=== PATIENT | female | born 1965 | race Caucasian/White ===

== ENCOUNTER 2020-08-13 16:56 | Inpatient (IN) | payer OTHER ==
[2020-08-13 18:20] VITALS: BMI 23.9
[2020-08-13] MEDS ORDERED: BISMUTH SUBSALICYLATE 524 MG/30 ML UD PO PRN (18:46)
[2020-08-13] MEDS ORDERED: MAGNESIUM CITRATE 300 ML BOTTLE PO PRN (18:46)
[2020-08-13] MEDS ORDERED: IBUPROFEN 400 MG TABLET (FP) PO PRN (18:46)
[2020-08-13] MEDS ORDERED: MENTHOL/PHENOL 1 EACH UD MM PRN (18:46)
[2020-08-13] MEDS ORDERED: METHOCARBAMOL 500 MG TABLET PO PRN (18:46)
[2020-08-13] MEDS ORDERED: MAG HYDROX/AL HYDROX/SIMETH 30 ML UNIT-DOSE CUP PO PRN (18:46)
[2020-08-13] MEDS ORDERED: ONDANSETRON *ODT* 4 MG TABLET SL PRN (18:46)
[2020-08-13] MEDS ORDERED: LORazepam 1 MG TABLET PO PRN (18:46)
[2020-08-13] MEDS ORDERED: ACETAMINOPHEN 325 MG TABLET (FP) PO PRN ×2 (18:46)
[2020-08-13] MEDS ORDERED: MAGNESIUM HYDROX 2400MG/30ML ORAL SUSPENSION 30 ML CUP PO PRN (18:46)
[2020-08-13] MEDS: PRENATAL VITAMINS W/ FOLIC ACID TABLET (FP) PO SCH (20:10)
[2020-08-13] MEDS: INSULIN SLIDING SCALE (NOVOLOG) 1 VIAL SQ SCH (22:27)
[2020-08-13] MEDS ORDERED: INSULIN (NOVOLOG) ASPART 100 UNITS/ML 10ML VIAL ONE (22:28)
[2020-08-13] MEDS: LORazepam 2 MG TABLET PO SCH (22:29)
[2020-08-13] MEDS: THIAMINE HCL 100 MG TABLET (FP) PO SCH (22:29)
[2020-08-13] MEDS: MELATONIN 5 MG TABLETS PO SCH (22:29)
[2020-08-13] MEDS: hydrOXYzine PAMOATE 25 MG CAPSULE (FP) PO SCH (22:31)
[2020-08-14] MEDS: LORazepam 2 MG TABLET PO SCH ×2 (05:51→12:23)
[2020-08-14] MEDS: hydrOXYzine PAMOATE 25 MG CAPSULE (FP) PO SCH ×5 (05:52→23:31)
[2020-08-14] MEDS: INSULIN SLIDING SCALE (NOVOLOG) 1 VIAL SQ SCH ×4 (07:53→21:16)
[2020-08-14] MEDS: metFORMIN HCL 500 MG TABLET (FP) PO SCH ×2 (07:53→16:54)
[2020-08-14] MEDS ORDERED: INSULIN (NOVOLOG) ASPART 100 UNITS/ML 10ML VIAL ONE ×3 (08:02→21:12)
[2020-08-14 10:47] LABS: HEMATOCRIT 38.3 % (32.4-45.2); HEMOGLOBIN 12.8 GM/dL (10.7-15.3); MCH 31.9 pg (25.7-33.7); MCHC 33.4 g/dl (32.0-36.0); MEAN CELL VOLUME 95.4 fl (80-96); MEAN PLT VOLUME 8.9 fl (7.5-11.1); PLATELET COUNT 326 K/MM3 (134-434); RBC 4.02 M/mm3 (3.60-5.2); RDW 14.1 % (11.6-15.6); WHITE BLOOD COUNT 7.3 K/mm3 (4.0-10.0)
[2020-08-14] MEDS: ESCITALOPRAM OXALATE 10 MG TABLET PO SCH (10:55)
[2020-08-14] MEDS: PRENATAL VITAMINS W/ FOLIC ACID TABLET (FP) PO SCH (10:56)
[2020-08-14 11:12] LABS: POTASSIUM 4.5 mmol/L (3.5-5.1)
[2020-08-14 11:16] LABS: CALCIUM 9.2 mg/dL (8.5-10.1)
[2020-08-14 11:19] LABS: ALBUMIN 3.4 g/dl (3.4-5.0); BLOOD UREA NITROGEN 17.1 mg/dL (7-18)
[2020-08-14 11:22] LABS: CREATININE 0.8 mg/dL (0.55-1.3)
[2020-08-14 11:24] LABS: BILIRUBIN,TOTAL 0.7 mg/dL (0.2-1); TOT PROT 6.4 g/dl (6.4-8.2)
[2020-08-14] MEDS: LORazepam 1 MG TABLET PO SCH ×2 (19:11→23:32)
[2020-08-14] MEDS: THIAMINE HCL 100 MG TABLET (FP) PO SCH (23:31)
[2020-08-14] MEDS: MELATONIN 5 MG TABLETS PO SCH (23:31)
[2020-08-15] MEDS ORDERED: LORazepam 1 MG TABLET PO SCH (05:00)
[2020-08-15] MEDS: LORazepam 1 MG TABLET PO SCH ×2 (06:15→10:20)
[2020-08-15] MEDS: hydrOXYzine PAMOATE 25 MG CAPSULE (FP) PO SCH ×5 (06:15→22:16)
[2020-08-15] MEDS: metFORMIN HCL 500 MG TABLET (FP) PO SCH ×2 (06:15→17:12)
[2020-08-15] MEDS: PRENATAL VITAMINS W/ FOLIC ACID TABLET (FP) PO SCH (10:20)
[2020-08-15] MEDS: ESCITALOPRAM OXALATE 10 MG TABLET PO SCH (10:21)
[2020-08-15] MEDS: INSULIN SLIDING SCALE (NOVOLOG) 1 VIAL SQ SCH ×4 (13:38→22:16)
[2020-08-15] MEDS ORDERED: INSULIN (NOVOLOG) ASPART 100 UNITS/ML 10ML VIAL ONE ×2 (17:10→22:15)
[2020-08-15] MEDS: LORazepam 0.5 MG TABLET PO SCH ×2 (17:12→22:16)
[2020-08-15] MEDS: THIAMINE HCL 100 MG TABLET (FP) PO SCH (22:16)
[2020-08-15] MEDS: MELATONIN 5 MG TABLETS PO SCH (22:16)
[2020-08-16] MEDS ORDERED: LORazepam 0.5 MG TABLET PO PRN
[2020-08-16] MEDS ORDERED: LORazepam 0.5 MG TABLET PO SCH (05:00)
[2020-08-16] MEDS: LORazepam 0.5 MG TABLET PO SCH ×3 (06:19→17:10)
[2020-08-16] MEDS: metFORMIN HCL 500 MG TABLET (FP) PO SCH ×2 (06:19→17:09)
[2020-08-16] MEDS: hydrOXYzine PAMOATE 25 MG CAPSULE (FP) PO SCH ×5 (06:19→22:47)
[2020-08-16] MEDS: INSULIN SLIDING SCALE (NOVOLOG) 1 VIAL SQ SCH ×4 (08:04→22:49)
[2020-08-16] MEDS: ESCITALOPRAM OXALATE 10 MG TABLET PO SCH (10:34)
[2020-08-16] MEDS: PRENATAL VITAMINS W/ FOLIC ACID TABLET (FP) PO SCH (10:34)
[2020-08-16] MEDS: THIAMINE HCL 100 MG TABLET (FP) PO SCH (22:46)
[2020-08-16] MEDS: MELATONIN 5 MG TABLETS PO SCH (22:47)
[2020-08-17] MEDS ORDERED: LORazepam 0.5 MG TABLET PO ONE (05:00)
[2020-08-17] MEDS: metFORMIN HCL 500 MG TABLET (FP) PO SCH ×2 (06:16→17:36)
[2020-08-17] MEDS: hydrOXYzine PAMOATE 25 MG CAPSULE (FP) PO SCH ×4 (06:17→17:36)
[2020-08-17] MEDS ORDERED: INSULIN (NOVOLOG) ASPART 100 UNITS/ML 10ML VIAL ONE ×2 (06:22→17:21)
[2020-08-17] MEDS: INSULIN SLIDING SCALE (NOVOLOG) 1 VIAL SQ SCH ×3 (06:27→17:37)
[2020-08-17] MEDS: ESCITALOPRAM OXALATE 10 MG TABLET PO SCH (10:29)
[2020-08-17] MEDS: PRENATAL VITAMINS W/ FOLIC ACID TABLET (FP) PO SCH (10:29)
[2020-08-17 13:12] VITALS: BP 143/93; PULSE 87; TEMP 97.1
== END 2020-08-17 18:56 | disposition other institution (70) | DRG 774 ==
LOC: YASAS 16:56 → Y6N 18:25
PROVIDERS: ADMIT Allergy & Immunology; ATTEND Allergy & Immunology
PROC: HZ2ZZZZ Detoxification Services for Substance Abuse Treatment (ICD-10-PCS; principal; 2020-08-13)
DX: F10.230 Alcohol dependence with withdrawal, uncomplicated (principal); F14.20 Cocaine dependence, uncomplicated; F19.282 Other psychoactive substance dependence with psychoactive substance-induced sleep disorder; F19.280 Other psychoactive substance dependence with psychoactive substance-induced anxiety disorder; F19.24 Other psychoactive substance dependence with psychoactive substance-induced mood disorder; F14.280 Cocaine dependence with cocaine-induced anxiety disorder; I69.854 Hemiplegia and hemiparesis following other cerebrovascular disease affecting left non-dominant side; G62.9 Polyneuropathy, unspecified; K08.89 Other specified disorders of teeth and supporting structures; E11.9 Type 2 diabetes mellitus without complications; Z79.84 Long term (current) use of oral hypoglycemic drugs; Z86.19 Personal history of other infectious and parasitic diseases
CPT/HCPCS: 36415; 80053; 81025; 82962; 85027; 86593; 86780; 93005; 93010; C9803; U0003

== ENCOUNTER 2020-08-17 17:39 | Inpatient (IN) | payer OTHER ==
[2020-08-17] MEDS ORDERED: NICOTINE POLACRILEX 2 MG GUM BC PRN (19:23)
[2020-08-17] MEDS ORDERED: LOPERAMIDE HCL 2 MG CAPSULE PO PRN (19:23)
[2020-08-17] MEDS ORDERED: MAGNESIUM CITRATE 300 ML BOTTLE PO PRN (19:23)
[2020-08-17] MEDS ORDERED: guaiFENesin 200 MG/10 ML 10 ML UNIT-DOSE CUPS PO PRN (19:23)
[2020-08-17] MEDS ORDERED: P-EPHED 60MG/TRIPROLIDI 2.5MG TABLET PO PRN (19:23)
[2020-08-17] MEDS: THIAMINE HCL 100 MG TABLET (FP) PO SCH (21:27)
[2020-08-17] MEDS ORDERED: MELATONIN 5 MG TABLETS PO SCH (22:00)
[2020-08-18] MEDS: IBUPROFEN 400 MG TABLET (FP) PO PRN (06:28)
[2020-08-18] MEDS: metFORMIN HCL 500 MG TABLET (FP) PO SCH ×2 (06:28→16:47)
[2020-08-18] MEDS: INSULIN SLIDING SCALE (NOVOLOG) 1 VIAL SQ SCH ×2 (06:36→16:47)
[2020-08-18] MEDS ORDERED: PATIENT'S OWN MEDICATION (NON-FORMULARY) (Escitalopram Oxalate [Lexapro -] 5 MG Tablet) PO SCH (10:00)
[2020-08-18] MEDS: PRENATAL VITAMINS W/ FOLIC ACID TABLET (FP) PO SCH (10:18)
[2020-08-18] MEDS: ESCITALOPRAM OXALATE 10 MG TABLET PO SCH (10:21)
[2020-08-18] MEDS: NICOTINE 14 MG/24 HOURS TOPICAL PATCH TD SCH (10:21)
[2020-08-18] MEDS ORDERED: INSULIN (NOVOLOG) ASPART 100 UNITS/ML 10ML VIAL ONE (16:43)
[2020-08-18] MEDS: THIAMINE HCL 100 MG TABLET (FP) PO SCH (21:25)
[2020-08-18] MEDS ORDERED: MELATONIN 5 MG TABLETS PO SCH (22:00)
[2020-08-19] MEDS: metFORMIN HCL 500 MG TABLET (FP) PO SCH ×2 (06:22→16:42)
[2020-08-19] MEDS: INSULIN SLIDING SCALE (NOVOLOG) 1 VIAL SQ SCH ×2 (06:22→16:43)
[2020-08-19] MEDS: PRENATAL VITAMINS W/ FOLIC ACID TABLET (FP) PO SCH (10:19)
[2020-08-19] MEDS: ESCITALOPRAM OXALATE 10 MG TABLET PO SCH (10:19)
[2020-08-19] MEDS: NICOTINE 14 MG/24 HOURS TOPICAL PATCH TD SCH (10:21)
[2020-08-19] MEDS: MAG HYDROX/AL HYDROX/SIMETH 30 ML UNIT-DOSE CUP PO PRN (11:02)
[2020-08-19] MEDS: hydrOXYzine PAMOATE 25 MG CAPSULE (FP) PO PRN (11:02)
[2020-08-19] MEDS ORDERED: INSULIN (NOVOLOG) ASPART 100 UNITS/ML 10ML VIAL ONE (16:41)
[2020-08-19] MEDS: THIAMINE HCL 100 MG TABLET (FP) PO SCH (21:11)
[2020-08-19] MEDS: SUVOREXANT 10 MG TABLET PO PRN (21:12)
[2020-08-19] MEDS: IBUPROFEN 400 MG TABLET (FP) PO PRN (23:11)
[2020-08-20] MEDS: metFORMIN HCL 500 MG TABLET (FP) PO SCH ×2 (06:37→16:43)
[2020-08-20] MEDS: INSULIN SLIDING SCALE (NOVOLOG) 1 VIAL SQ SCH ×2 (06:38→16:45)
[2020-08-20] MEDS: NICOTINE 14 MG/24 HOURS TOPICAL PATCH TD SCH (10:28)
[2020-08-20] MEDS: ESCITALOPRAM OXALATE 10 MG TABLET PO SCH (10:28)
[2020-08-20] MEDS: PRENATAL VITAMINS W/ FOLIC ACID TABLET (FP) PO SCH (10:28)
[2020-08-20] MEDS ORDERED: INSULIN (NOVOLOG) ASPART 100 UNITS/ML 10ML VIAL ONE (16:41)
[2020-08-20] MEDS: THIAMINE HCL 100 MG TABLET (FP) PO SCH (21:34)
[2020-08-20] MEDS: SUVOREXANT 10 MG TABLET PO PRN (21:35)
[2020-08-20] MEDS: hydrOXYzine PAMOATE 25 MG CAPSULE (FP) PO PRN (21:35)
[2020-08-21] MEDS: metFORMIN HCL 500 MG TABLET (FP) PO SCH ×2 (06:10→17:33)
[2020-08-21] MEDS: INSULIN SLIDING SCALE (NOVOLOG) 1 VIAL SQ SCH ×2 (06:11→17:34)
[2020-08-21] MEDS: IBUPROFEN 400 MG TABLET (FP) PO PRN (11:10)
[2020-08-21] MEDS: NICOTINE 14 MG/24 HOURS TOPICAL PATCH TD SCH (11:11)
[2020-08-21] MEDS: ESCITALOPRAM OXALATE 10 MG TABLET PO SCH (11:11)
[2020-08-21] MEDS: PRENATAL VITAMINS W/ FOLIC ACID TABLET (FP) PO SCH (11:11)
[2020-08-21] MEDS: THIAMINE HCL 100 MG TABLET (FP) PO SCH (21:45)
[2020-08-21] MEDS: SUVOREXANT 10 MG TABLET PO PRN (21:46)
[2020-08-21] MEDS: hydrOXYzine PAMOATE 25 MG CAPSULE (FP) PO PRN (21:47)
[2020-08-22] MEDS: metFORMIN HCL 500 MG TABLET (FP) PO SCH ×2 (06:22→16:52)
[2020-08-22] MEDS: INSULIN SLIDING SCALE (NOVOLOG) 1 VIAL SQ SCH ×2 (06:25→17:01)
[2020-08-22] MEDS: ESCITALOPRAM OXALATE 10 MG TABLET PO SCH (10:40)
[2020-08-22] MEDS: hydrOXYzine PAMOATE 25 MG CAPSULE (FP) PO PRN ×2 (10:40→21:35)
[2020-08-22] MEDS: PRENATAL VITAMINS W/ FOLIC ACID TABLET (FP) PO SCH (10:40)
[2020-08-22] MEDS: NICOTINE 14 MG/24 HOURS TOPICAL PATCH TD SCH (10:42)
[2020-08-22] MEDS: MAG HYDROX/AL HYDROX/SIMETH 30 ML UNIT-DOSE CUP PO PRN (13:46)
[2020-08-22] MEDS: THIAMINE HCL 100 MG TABLET (FP) PO SCH (21:32)
[2020-08-22] MEDS: SUVOREXANT 10 MG TABLET PO PRN (21:34)
[2020-08-23] MEDS: metFORMIN HCL 500 MG TABLET (FP) PO SCH ×2 (06:24→16:26)
[2020-08-23] MEDS: INSULIN SLIDING SCALE (NOVOLOG) 1 VIAL SQ SCH ×2 (06:25→16:27)
[2020-08-23] MEDS: NICOTINE 14 MG/24 HOURS TOPICAL PATCH TD SCH (10:27)
[2020-08-23] MEDS: ESCITALOPRAM OXALATE 10 MG TABLET PO SCH (10:27)
[2020-08-23] MEDS: hydrOXYzine PAMOATE 25 MG CAPSULE (FP) PO PRN ×2 (10:27→21:20)
[2020-08-23] MEDS: PRENATAL VITAMINS W/ FOLIC ACID TABLET (FP) PO SCH (10:27)
[2020-08-23] MEDS: MAG HYDROX/AL HYDROX/SIMETH 30 ML UNIT-DOSE CUP PO PRN (10:28)
[2020-08-23] MEDS: THIAMINE HCL 100 MG TABLET (FP) PO SCH (21:19)
[2020-08-23] MEDS: SUVOREXANT 10 MG TABLET PO PRN (21:20)
[2020-08-24] MEDS: INSULIN SLIDING SCALE (NOVOLOG) 1 VIAL SQ SCH ×2 (06:22→16:51)
[2020-08-24] MEDS: metFORMIN HCL 500 MG TABLET (FP) PO SCH ×2 (06:22→16:50)
[2020-08-24] MEDS: PRENATAL VITAMINS W/ FOLIC ACID TABLET (FP) PO SCH (10:18)
[2020-08-24] MEDS: hydrOXYzine PAMOATE 25 MG CAPSULE (FP) PO PRN ×2 (10:18→21:47)
[2020-08-24] MEDS: MAGNESIUM HYDROX 2400MG/30ML ORAL SUSPENSION 30 ML CUP PO PRN (10:19)
[2020-08-24] MEDS: ESCITALOPRAM OXALATE 10 MG TABLET PO SCH (10:19)
[2020-08-24] MEDS: NICOTINE 14 MG/24 HOURS TOPICAL PATCH TD SCH (10:19)
[2020-08-24] MEDS ORDERED: INSULIN (NOVOLOG) ASPART 100 UNITS/ML 10ML VIAL ONE (16:49)
[2020-08-24] MEDS: IBUPROFEN 400 MG TABLET (FP) PO PRN (18:51)
[2020-08-24] MEDS: SUVOREXANT 10 MG TABLET PO PRN (21:47)
[2020-08-24] MEDS: THIAMINE HCL 100 MG TABLET (FP) PO SCH (21:48)
[2020-08-25] MEDS: INSULIN SLIDING SCALE (NOVOLOG) 1 VIAL SQ SCH ×2 (06:41→16:54)
[2020-08-25] MEDS: metFORMIN HCL 500 MG TABLET (FP) PO SCH ×2 (06:41→16:55)
[2020-08-25] MEDS: IBUPROFEN 400 MG TABLET (FP) PO PRN ×3 (07:34→22:45)
[2020-08-25] MEDS: PRENATAL VITAMINS W/ FOLIC ACID TABLET (FP) PO SCH (10:29)
[2020-08-25] MEDS: ESCITALOPRAM OXALATE 10 MG TABLET PO SCH (10:29)
[2020-08-25] MEDS: hydrOXYzine PAMOATE 25 MG CAPSULE (FP) PO PRN ×2 (10:29→21:24)
[2020-08-25] MEDS: NICOTINE 14 MG/24 HOURS TOPICAL PATCH TD SCH (10:30)
[2020-08-25] MEDS ORDERED: INSULIN (NOVOLOG) ASPART 100 UNITS/ML 10ML VIAL ONE ×2 (16:44→22:03)
[2020-08-25] MEDS: LIDOCAINE VISCOUS 2% ORAL/TOP 20 ML UNIT-DOSE CUP MM SCH ×2 (18:48→21:23)
[2020-08-25] MEDS: THIAMINE HCL 100 MG TABLET (FP) PO SCH (21:23)
[2020-08-25] MEDS: METHOCARBAMOL 500 MG TABLET PO PRN (21:24)
[2020-08-25] MEDS: ACETAMINOPHEN 325 MG TABLET (FP) PO PRN (21:24)
[2020-08-25] MEDS: SUVOREXANT 10 MG TABLET PO PRN (22:44)
[2020-08-26] MEDS: ACETAMINOPHEN 325 MG TABLET (FP) PO PRN ×3 (02:40→14:39)
[2020-08-26] MEDS: hydrOXYzine PAMOATE 25 MG CAPSULE (FP) PO PRN ×2 (02:40→18:23)
[2020-08-26] MEDS: IBUPROFEN 400 MG TABLET (FP) PO PRN ×4 (06:20→22:14)
[2020-08-26] MEDS: metFORMIN HCL 500 MG TABLET (FP) PO SCH ×2 (06:24→16:47)
[2020-08-26] MEDS: INSULIN SLIDING SCALE (NOVOLOG) 1 VIAL SQ SCH ×2 (06:24→16:45)
[2020-08-26] MEDS: LIDOCAINE VISCOUS 2% ORAL/TOP 20 ML UNIT-DOSE CUP MM SCH (06:25)
[2020-08-26] MEDS: NICOTINE 14 MG/24 HOURS TOPICAL PATCH TD SCH (09:39)
[2020-08-26] MEDS: PRENATAL VITAMINS W/ FOLIC ACID TABLET (FP) PO SCH (09:40)
[2020-08-26] MEDS: ESCITALOPRAM OXALATE 10 MG TABLET PO SCH (09:40)
[2020-08-26] MEDS ORDERED: LIDOCAINE VISCOUS 2% ORAL/TOP 20 ML UNIT-DOSE CUP MM PRN (10:01)
[2020-08-26] MEDS: AMOXICILLIN 500 MG CAPSULE (FP) PO SCH ×2 (11:54→21:09)
[2020-08-26] MEDS: CHLORHEXIDINE GLUCONATE 0.12% 15ML CUP MM SCH ×2 (14:37→21:10)
[2020-08-26] MEDS: BENZOCAINE 20 % GEL TUBE MM PRN ×2 (14:41→21:11)
[2020-08-26] MEDS: METHOCARBAMOL 500 MG TABLET PO PRN (18:27)
[2020-08-26] MEDS ORDERED: PT OWN MED DRAWER 7, Y5N ONE (20:26)
[2020-08-26] MEDS: THIAMINE HCL 100 MG TABLET (FP) PO SCH (21:09)
[2020-08-26] MEDS: SUVOREXANT 10 MG TABLET PO PRN (21:12)
[2020-08-27] MEDS ORDERED: PT OWN MED DRAWER 7, Y5N ONE ×3 (06:10→19:39)
[2020-08-27] MEDS: metFORMIN HCL 500 MG TABLET (FP) PO SCH ×2 (06:14→16:51)
[2020-08-27] MEDS: INSULIN SLIDING SCALE (NOVOLOG) 1 VIAL SQ SCH ×2 (06:15→16:51)
[2020-08-27] MEDS: IBUPROFEN 400 MG TABLET (FP) PO PRN (06:15)
[2020-08-27] MEDS: BENZOCAINE 20 % GEL TUBE MM PRN (06:17)
[2020-08-27] MEDS ORDERED: IBUPROFEN 600 MG TABLET (FP) PO PRN (08:17)
[2020-08-27] MEDS: ACETAMINOPHEN 325 MG TABLET (FP) PO PRN (09:39)
[2020-08-27] MEDS: CHLORHEXIDINE GLUCONATE 0.12% 15ML CUP MM SCH ×2 (09:40→21:08)
[2020-08-27] MEDS: PRENATAL VITAMINS W/ FOLIC ACID TABLET (FP) PO SCH (09:40)
[2020-08-27] MEDS: AMOXICILLIN 500 MG CAPSULE (FP) PO SCH ×2 (09:40→21:06)
[2020-08-27] MEDS: ESCITALOPRAM OXALATE 10 MG TABLET PO SCH (09:40)
[2020-08-27] MEDS: METHOCARBAMOL 500 MG TABLET PO PRN ×2 (09:41→14:57)
[2020-08-27] MEDS: hydrOXYzine PAMOATE 25 MG CAPSULE (FP) PO PRN ×3 (09:41→21:06)
[2020-08-27] MEDS: NICOTINE 14 MG/24 HOURS TOPICAL PATCH TD SCH (09:41)
[2020-08-27] MEDS ORDERED: LIDOCAINE VISCOUS 2% ORAL/TOP 20 ML UNIT-DOSE CUP MM PRN (11:07)
[2020-08-27] MEDS: IBUPROFEN 600 MG TABLET (FP) PO PRN ×2 (14:57→21:09)
[2020-08-27] MEDS ORDERED: INSULIN (NOVOLOG) ASPART 100 UNITS/ML 10ML VIAL ONE ×2 (16:50→23:06)
[2020-08-27] MEDS: THIAMINE HCL 100 MG TABLET (FP) PO SCH (21:06)
[2020-08-27] MEDS: SUVOREXANT 10 MG TABLET PO PRN (23:57)
[2020-08-28] MEDS: metFORMIN HCL 500 MG TABLET (FP) PO SCH ×2 (06:47→16:54)
[2020-08-28] MEDS: IBUPROFEN 600 MG TABLET (FP) PO PRN ×4 (06:48→23:20)
[2020-08-28] MEDS: INSULIN SLIDING SCALE (NOVOLOG) 1 VIAL SQ SCH ×2 (06:50→16:56)
[2020-08-28] MEDS: AMOXICILLIN 500 MG CAPSULE (FP) PO SCH ×2 (10:27→21:04)
[2020-08-28] MEDS: PRENATAL VITAMINS W/ FOLIC ACID TABLET (FP) PO SCH (10:28)
[2020-08-28] MEDS: NICOTINE 14 MG/24 HOURS TOPICAL PATCH TD SCH (10:28)
[2020-08-28] MEDS: ESCITALOPRAM OXALATE 10 MG TABLET PO SCH (10:28)
[2020-08-28] MEDS: CHLORHEXIDINE GLUCONATE 0.12% 15ML CUP MM SCH ×2 (10:29→21:04)
[2020-08-28] MEDS: METHOCARBAMOL 500 MG TABLET PO PRN ×2 (10:29→21:06)
[2020-08-28] MEDS: MAGNESIUM HYDROX 2400MG/30ML ORAL SUSPENSION 30 ML CUP PO PRN (10:56)
[2020-08-28] MEDS ORDERED: PT OWN MED DRAWER 7, Y5N ONE (15:48)
[2020-08-28] MEDS ORDERED: INSULIN (NOVOLOG) ASPART 100 UNITS/ML 10ML VIAL ONE ×2 (16:43→21:46)
[2020-08-28] MEDS: THIAMINE HCL 100 MG TABLET (FP) PO SCH (21:03)
[2020-08-28] MEDS: SUVOREXANT 10 MG TABLET PO PRN (21:06)
[2020-08-29] MEDS: IBUPROFEN 600 MG TABLET (FP) PO PRN ×4 (03:47→21:24)
[2020-08-29] MEDS: hydrOXYzine PAMOATE 25 MG CAPSULE (FP) PO PRN ×2 (03:47→21:25)
[2020-08-29] MEDS: INSULIN SLIDING SCALE (NOVOLOG) 1 VIAL SQ SCH ×2 (06:39→16:44)
[2020-08-29] MEDS: metFORMIN HCL 500 MG TABLET (FP) PO SCH ×2 (06:39→16:45)
[2020-08-29] MEDS ORDERED: PT OWN MED DRAWER 7, Y5N ONE ×2 (08:38→22:46)
[2020-08-29] MEDS: CHLORHEXIDINE GLUCONATE 0.12% 15ML CUP MM SCH ×2 (09:18→21:26)
[2020-08-29] MEDS: AMOXICILLIN 500 MG CAPSULE (FP) PO SCH ×2 (09:18→21:24)
[2020-08-29] MEDS: ESCITALOPRAM OXALATE 10 MG TABLET PO SCH (09:18)
[2020-08-29] MEDS: PRENATAL VITAMINS W/ FOLIC ACID TABLET (FP) PO SCH (09:18)
[2020-08-29] MEDS: NICOTINE 14 MG/24 HOURS TOPICAL PATCH TD SCH (09:20)
[2020-08-29] MEDS ORDERED: MASKS NR ONE (12:56)
[2020-08-29] MEDS: METHOCARBAMOL 500 MG TABLET PO PRN (21:24)
[2020-08-29] MEDS: THIAMINE HCL 100 MG TABLET (FP) PO SCH (21:25)
[2020-08-29] MEDS: SUVOREXANT 10 MG TABLET PO PRN (21:25)
[2020-08-30] MEDS: IBUPROFEN 600 MG TABLET (FP) PO PRN ×4 (03:36→21:17)
[2020-08-30] MEDS: INSULIN SLIDING SCALE (NOVOLOG) 1 VIAL SQ SCH ×2 (06:24→16:52)
[2020-08-30] MEDS: metFORMIN HCL 500 MG TABLET (FP) PO SCH ×2 (06:24→16:52)
[2020-08-30] MEDS ORDERED: PT OWN MED DRAWER 7, Y5N ONE (08:53)
[2020-08-30] MEDS: ESCITALOPRAM OXALATE 10 MG TABLET PO SCH (09:56)
[2020-08-30] MEDS: AMOXICILLIN 500 MG CAPSULE (FP) PO SCH ×2 (09:57→21:18)
[2020-08-30] MEDS: PRENATAL VITAMINS W/ FOLIC ACID TABLET (FP) PO SCH (09:57)
[2020-08-30] MEDS: CHLORHEXIDINE GLUCONATE 0.12% 15ML CUP MM SCH ×2 (09:59→21:18)
[2020-08-30] MEDS: NICOTINE 14 MG/24 HOURS TOPICAL PATCH TD SCH (09:59)
[2020-08-30] MEDS ORDERED: INSULIN (NOVOLOG) ASPART 100 UNITS/ML 10ML VIAL ONE (16:43)
[2020-08-30] MEDS: THIAMINE HCL 100 MG TABLET (FP) PO SCH (21:17)
[2020-08-30] MEDS: hydrOXYzine PAMOATE 25 MG CAPSULE (FP) PO PRN (21:18)
[2020-08-30] MEDS: METHOCARBAMOL 500 MG TABLET PO PRN (21:19)
[2020-08-30] MEDS: SUVOREXANT 10 MG TABLET PO PRN (21:20)
[2020-08-31] MEDS: metFORMIN HCL 500 MG TABLET (FP) PO SCH ×2 (06:19→16:51)
[2020-08-31] MEDS: IBUPROFEN 600 MG TABLET (FP) PO PRN ×3 (06:19→21:12)
[2020-08-31] MEDS: INSULIN SLIDING SCALE (NOVOLOG) 1 VIAL SQ SCH ×2 (06:19→16:51)
[2020-08-31 06:41] VITALS: TEMP 97.2
[2020-08-31] MEDS ORDERED: PT OWN MED DRAWER 7, Y5N ONE (09:00)
[2020-08-31] MEDS: ESCITALOPRAM OXALATE 10 MG TABLET PO SCH (10:19)
[2020-08-31] MEDS: AMOXICILLIN 500 MG CAPSULE (FP) PO SCH ×2 (10:19→21:14)
[2020-08-31] MEDS: PRENATAL VITAMINS W/ FOLIC ACID TABLET (FP) PO SCH (10:21)
[2020-08-31] MEDS: CHLORHEXIDINE GLUCONATE 0.12% 15ML CUP MM SCH ×2 (10:21→21:14)
[2020-08-31] MEDS: NICOTINE 14 MG/24 HOURS TOPICAL PATCH TD SCH (10:22)
[2020-08-31] MEDS: MAG HYDROX/AL HYDROX/SIMETH 30 ML UNIT-DOSE CUP PO PRN (10:24)
[2020-08-31] MEDS ORDERED: INSULIN (NOVOLOG) ASPART 100 UNITS/ML 10ML VIAL ONE ×2 (16:37→21:39)
[2020-08-31] MEDS: hydrOXYzine PAMOATE 25 MG CAPSULE (FP) PO PRN (21:12)
[2020-08-31] MEDS: THIAMINE HCL 100 MG TABLET (FP) PO SCH (21:12)
[2020-08-31] MEDS: METHOCARBAMOL 500 MG TABLET PO PRN (21:12)
[2020-08-31] MEDS ORDERED: SUVOREXANT 10 MG TABLET PO PRN (22:00)
[2020-09-01] MEDS: metFORMIN HCL 500 MG TABLET (FP) PO SCH (06:24)
[2020-09-01] MEDS: IBUPROFEN 600 MG TABLET (FP) PO PRN (06:25)
[2020-09-01] MEDS: INSULIN SLIDING SCALE (NOVOLOG) 1 VIAL SQ SCH (06:25)
[2020-09-01 06:43] VITALS: BP 121/80; PULSE 63
[2020-09-01] MEDS ORDERED: PT OWN MED DRAWER 7, Y5N ONE (08:46)
== END 2020-09-01 09:06 | disposition home or self-care (01) | DRG 772 ==
LOC: YASAS 17:39 → Y3W 17:40 → Y3E 08-25 11:04
PROVIDERS: ADMIT Allergy & Immunology; ATTEND Allergy & Immunology
PROC: HZ42ZZZ Group Counseling for Substance Abuse Treatment, Cognitive-Behavioral (ICD-10-PCS; principal; 2020-08-17)
DX: F10.20 Alcohol dependence, uncomplicated (principal); F14.20 Cocaine dependence, uncomplicated; F12.20 Cannabis dependence, uncomplicated; F19.282 Other psychoactive substance dependence with psychoactive substance-induced sleep disorder; F19.24 Other psychoactive substance dependence with psychoactive substance-induced mood disorder; F41.9 Anxiety disorder, unspecified; F32.9 Major depressive disorder, single episode, unspecified; G62.9 Polyneuropathy, unspecified; E11.9 Type 2 diabetes mellitus without complications; Z79.84 Long term (current) use of oral hypoglycemic drugs; B18.2 Chronic viral hepatitis C; K08.89 Other specified disorders of teeth and supporting structures; K04.7 Periapical abscess without sinus; I69.898 Other sequelae of other cerebrovascular disease; R20.8 Other disturbances of skin sensation; Z86.19 Personal history of other infectious and parasitic diseases
CPT/HCPCS: 82962; C9803; U0003